=== PATIENT | male | born 1935 | race Caucasian/White ===

== ENCOUNTER 2017-03-18 11:17 | Emergency (ER) | payer MEDICARE, BC ==
--- NOTE | 2017-03-18 11:54 | ER Document Report ---
ED Medical Screen (RME) - General Chief Complaint: Fall Stated Complaint: FALL HEAD INJURY Time Seen by Provider: 03/18/17 11:48 Mode of Arrival: Ambulatory Information source: Patient, Relative TRAVEL OUTSIDE OF THE [place] IN LAST 30 DAYS: No - HPI Onset: This morning Onset/Duration: Sudden Associated Symptoms: None Exacerbated by: Denies Relieved by: Denies Notes: 03/18/17 11:52 Patient is an 81-year-old male who is very functional at home. Patient tripped and fell while ambulating sustaining several wounds to the left side of the face. Patient denies any loss of consciousness. Patient denies any neck or back pain. Patient denies any other injuries. Patient presents with several skin tears to the left side of the face along with a small laceration that requires repair. On the left forehead. - Related Data Allergies/Adverse Reactions: warfarin [Warfarin] Allergy (Severe, Verified 03/18/17 11:20) too high pt levels Past Medical History - General Information source: Patient, Relative, [facility] Records - Past Medical History Cardiac Medical History: Reports: Hx Coronary Artery Disease - ist degree ht block, arrhythmia, Hx Hypertension Pulmonary Medical History: Reports: Hx COPD Renal/ Medical History: Denies: Hx Peritoneal Dialysis GI Medical History: Reports: Hx Ulcer Musculoskeltal Medical History: Reports Hx Arthritis - gout Past Surgical History: Reports: Hx Orthopedic Surgery - right knee, neck fusion. Denies: Hx Pacemaker - Immunizations Hx Diphtheria, Pertussis, Tetanus Vaccination: Yes Review of Systems - Review of Systems Skin: Other - facial laceration and skin tear -: Yes All other systems reviewed and negative Physical Exam - Vital signs Vitals: Temp Pulse Resp BP Pulse Ox 97.5 F 50 L 18 118/87 H 96 03/18/17 11:20 03/18/17 11:20 03/18/17 11:20 03/18/17 11:20 03/18/17 11:20 Interpretation: Normal - General General appearance: Appears well, Alert - HEENT Head: Normocephalic, Abrasions, Other - Several small left-sided facial skin tears. There is a 1.5 cm curved laceration to the left forehead which will require suture repair. Eyes: Normal Pupils: PERRL Mouth/Lips: Normal Mucous membranes: Moist Pharynx: Normal Neck: Normal, Other - Cervical spine nontender to palpation - Respiratory Respiratory status: No respiratory distress Chest status: Nontender Breath sounds: Normal Chest palpation: Normal - Cardiovascular Rhythm: Regular Heart sounds: Normal auscultation Murmur: No - Extremities General upper extremity: Normal inspection, Nontender, Normal color, Normal ROM , Normal temperature General lower extremity: Normal inspection, Nontender, Normal color, Normal ROM , Normal temperature, Normal weight bearing. No: Claudia's sign - Neurological Neuro grossly intact: Yes Cognition: Normal Orientation: AAOx4 [place] Coma Scale Eye Opening: Spontaneous Wilber Coma Scale Verbal: Oriented Wilber Coma Scale Motor: Obeys Commands [place] Coma Scale Total: 15 Speech: Normal Motor strength normal: LUE, RUE, LLE, RLE Sensory: Normal Course - Re-evaluation Re-evalutation: 03/18/17 11:[address] is ordered. Laceration will be repaired by mid-level provider. - Vital Signs Vital signs: Temp Pulse Resp BP Pulse Ox 97.5 F 50 L 18 118/87 H 96 03/18/17 11:20 03/18/17 11:20 03/18/17 11:20 03/18/17 11:20 03/18/17 13:26 Doctor's Discharge - Discharge Clinical Impression: Facial laceration Condition: Good Disposition: HOME, SELF-CARE Instructions: Laceration Care ([facility]), Head Injury Precautions ([facility]) Additional Instructions: Suture removal in 7-10 days. Return for any problems.
[2017-03-18] MEDS ORDERED: LIDOCAINE 1%/EPINEPHRINE INJ 20 ML VIAL INJ ONE (11:57)
[2017-03-18] MEDS ORDERED: LIDOCAINE 1.5%/EPINEPHRINE INJ-PF 30 ML SDV INJ ONE (12:29)
[2017-03-18] MEDS ORDERED: LIDOCAINE 0.5%/EPINEPHRINE INJ 50 ML VIAL INJ ONE (12:47)
--- NOTE | 2017-03-18 12:54 | RADIOLOGY REPORT (SQ) ---
EXAM DESCRIPTION: CT HEAD WITHOUT COMPLETED DATE/TIME: 03/18/2017 12:40 pm REASON FOR STUDY: fall COMPARISON: 08/13/2011 CT brain TECHNIQUE: Axial images acquired through the brain without intravenous contrast. Images reviewed wi th bone, brain and subdural windows. Images stored on PACS. All CT scanners at this facility use dose modulation, iterative reconstruction, and/or weight based d osing when appropriate to reduce radiation dose to as low as reasonably achievable (ALARA). [facility]: Dose Right [facility]: CareDose [facility]: Dose Right [facility]: Teradose 4D [facility]: [employer] RADIATION DOSE: Up-to-date CT equipment and radiation dose reduction techniques were employed. CTDIv ol: 59.7 mGy. DLP: 1163 mGy-cm. mGy. LIMITATIONS: Motion artifact throughout the study FINDINGS: Motion artifact throughout study. On the images without motion artifact, there is CT evidence of acute intracranial hemorrhage, mass ef fect or midline shift. No gross evidence of large territory acute ischemic change. 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 Left frontal scalp laceration without underlying skull fracture. IMPRESSION: No gross acute intracranial changes. Left frontal scalp laceration without underlying skull fracture. TECHNICAL DOCUMENTATION: JOB ID: [id number] Quality ID # [id number]: Final reports with documentation of one or more dose reduction techniques (e.g., Au tomated exposure control, adjustment of the mA and/or kV according to patient size, use of iterative reconstruction technique) 2010 [employer]- All Rights Reserved
--- NOTE | 2017-03-18 13:26 | ER Document Report ---
HPI - HPI Pain Level: 2 Notes: Patient is an 81-year-old male presents to the ED status post fall with an injury laceration to his face that occurred this morning. Patient states that he was trying to walk to the bathroom and tripped and hit his face off the wood floor. accompanied him to the visit today. Patient has a history of ambulatory dysfunction, COPD, dementia along with several other chronic health conditions. states that aside from the fall he has no other acute changes in his health. His other chronic conditions continue to be status quo. states that he is still acting like his normal self without any deficits noted. Patient/ deny being on any blood thinner medication. Denies drug allergies aside from warfarin. Denies any headache, dizziness, tinnitus, fever , URI, sore throat, dysphagia, dysphasia, chest pain, palpitations, syncope, cough, wheeze, shortness of breath, dyspnea, abdominal pain, nausea/vomiting/ diarrhea, dysuria, or Osvaldo retention, loss of control of bowel or bladder, muscle weakness/paralysis, or other rash. - ROS Notes: REVIEW OF SYSTEMS: CONSTITUTIONAL : Denies fever, chills, or sweats. Denies recent illness. EENT: Denies eye, ear, throat, or mouth pain or symptoms. Denies nasal or sinus congestion or discharge. Denies throat, tongue, or mouth swelling or difficulty swallowing. CARDIOVASCULAR: Denies chest pain. Denies palpitations or racing or irregular heart beat. Denies ankle edema. RESPIRATORY: Denies cough, cold, or chest congestion. Denies shortness of breath, difficulty breathing, or wheezing. GASTROINTESTINAL: Denies abdominal pain or distention. Denies nausea, vomiting , or diarrhea. Denies blood in vomitus, stools, or per rectum. Denies black, tarry stools. Denies constipation. GENITOURINARY: Denies difficulty urinating, painful urination, burning, frequency, blood in urine, or discharge. MUSCULOSKELETAL: Denies back or neck pain or stiffness. Denies joint pain or swelling. SKIN: see hpi NEUROLOGICAL: see hpi. Denies confusion or altered mental status. Denies passing out or loss of consciousness. Denies dizziness or lightheadedness. Denies headache. Denies weakness or paralysis or loss of use of either side. Denies problems with gait or speech. Denies sensory loss, numbness, or tingling. Denies seizures. ALL OTHER SYSTEMS REVIEWED AND NEGATIVE. Dictation was performed using [employer] voice recognition software - CARDIOVASCULAR Cardiovascular: DENIES: Chest pain - DERM Skin Color: Normal Past Medical History - General Information source: Patient, Relative, [facility] Records - Social History Smoking Status: Never Smoker Family History: Reviewed & Not Pertinent Patient has suicidal ideation: No Patient has homicidal ideation: No - Past Medical History Cardiac Medical History: Reports: Hx Coronary Artery Disease - ist degree ht block, arrhythmia, Hx Hypertension Pulmonary Medical History: Reports: Hx COPD Renal/ Medical History: Denies: Hx Peritoneal Dialysis GI Medical History: Reports: Hx Ulcer Musculoskeltal Medical History: Reports Hx Arthritis - gout Past Surgical History: Reports: Hx Orthopedic Surgery - right knee, neck fusion. Denies: Hx Pacemaker - Immunizations Hx Diphtheria, Pertussis, Tetanus Vaccination: Yes Hx Pneumococcal Vaccination: 06/16/09 Vertical Provider Document - CONSTITUTIONAL Agree With Documented VS: Yes Notes: PHYSICAL EXAMINATION: GENERAL: Well-appearing, well-nourished and in no acute distress. HEAD: Atraumatic, normocephalic. + facial skin tears to forehead and inferior left eye, and a 3.0cm laceration above the left eyebrow. + mild tenderness to palp of the wound(s). No flor sign or skull tenderness. EYES: Pupils equal round and reactive to light, extraocular movements intact, sclera anicteric, conjunctiva are normal. No raccoon eyes aside from skin tear above. ENT: EAC clear b/l. TM's intact b/l without erythema, fluid, or perforation. Nares patent and without discharge. oropharynx clear without exudates. No tonsilar hypertrophy or erythema. Moist mucous membranes. No sinus tenderness. No hemotympanum or CSF discharge. NECK: Normal range of motion, supple without lymphadenopathy. No rigidity/ tenderness. LUNGS: Breath sounds clear to auscultation bilaterally and equal. No wheezes rales or rhonchi. HEART: Regular rate and rhythm without murmurs, rubs, gallops. ABDOMEN: Soft, nontender, nondistended abdomen. No guarding, no rebound. No masses appreciated. Normal bowel sounds present. No CVA tenderness bilaterally. Musculoskeletal: Ext b/l: FROM to passive/active. Strength 5+/5. Extremities: No cyanosis, clubbing, or edema b/l. Peripheral pulses 2+. Capillary refill less than 3 seconds. NEUROLOGICAL: Cranial nerves grossly intact. Normal speech, +ataxic gait. Normal sensory, motor exams PSYCH: Normal mood, normal affect. SKIN: skin tears and lac as noted above. - INFECTION CONTROL TRAVEL OUTSIDE OF THE [place] IN LAST 30 DAYS: No - RESPIRATORY O2 Sat by Pulse Oximetry: 96 Course - Re-evaluation Re-evalutation: 03/18/17 13:52 Patient is an afebrile, well-hydrated, 7-year-old male who presents the ED status post fall with a facial laceration and facial skin tears. Vitals are stable. PE otherwise unremarkable for any focal neurological deficits. Patient was initially eval by Dr. pina who evaluated and ordered a CT scan of the head. CT scan was unremarkable for any acute pathology. Facial laceration was repaired successfully utilizing 4 simple interrupted sutures of 5-0 nylon without any complications. Wounds were thoroughly irrigated. Wounds were debrided appropriately. Skin was cleansed using Shur-Clens and saline. Bacitracin was placed and wound dressings placed thereafter. Wound instructions reviewed with the and patient. They are to monitor for any acute neurological changes in the patient. Recheck with your PCM in 2-3 days. Recommend suture removal in about 5-7 days. Return to the ED with any worsening /concerning symptoms otherwise as reviewed in discharge. and patient are in agreement. - Vital Signs Vital signs: Temp Pulse Resp BP Pulse Ox 97.5 F 50 L 18 118/87 H 96 03/18/17 11:20 03/18/17 11:20 03/18/17 11:20 03/18/17 11:20 03/18/17 11:20 Procedures - Laceration/Wound Repair Left Face Time completed: 13:00 Wound length (cm): 3.0 Wound's Depth, Shape: Superficial, Irregular Laceration pre-procedure: Sterile PPE donned, Sterile drapes applied, Shur- Clens applied Anesthetic type: Other - 0.5% xylocaine with epi Volume Anesthetic (mLs): 6 Wound explored: Clean, No foreign body removed Irrigated w/ Saline (mLs): 60 Wound Debrided: Minimal - with 15 blade Wound Repaired With: Sutures Suture Size/Type: 5:0, Nylon Number of Sutures: 4 Layer Closure?: No Post-procedure wound care: Sterile dressing applied Post-procedure NV exam normal: Yes Complications: No Discharge - Discharge Clinical Impression: Facial laceration Qualifiers: Encounter type: initial encounter Qualified Code(s): S01.81XA - Laceration without foreign body of other part of head, initial encounter Condition: Stable Disposition: HOME, SELF-CARE Instructions: Head Injury Precautions ([facility]), Laceration Care ([facility]), Soap Cleansing ([facility]) Additional Instructions: Do not shower or bathe for 24 hours. After 24 hours she may shower but no submersion of the wound under water. Keep the original dressing on the wound for 24 hours unless the drainage stops through. Change the dressing daily thereafter and use a small amount of triple antibiotic ointment over the open wound for the first 2 days. Return to the ED and/or your PCM in 2-3 days for recheck and continue direction for wound packing. Monitor for any signs of worsening pain or redness, streaks, and/or fever. Return to the ED if noticing any of the above symptoms or as needed. Take medications as directed. Forms: Elevated Blood Pressure Referrals: [facility] [Provider Group] - Follow up as needed
[2017-03-18 13:43] VITALS: BP 140/105
== END 2017-03-18 14:00 | disposition home or self-care (01) ==
LOC: ER 11:17
PROC: 0HQ1XZZ Repair Face Skin, External Approach (ICD-10-PCS; principal; 2017-03-18)
DX: S01.81XA Laceration without foreign body of other part of head, initial encounter (principal); S01.112A Laceration without foreign body of left eyelid and periocular area, initial encounter; W10.9XXA Fall (on) (from) unspecified stairs and steps, initial encounter; Y93.89 Activity, other specified; Y92.009 Unspecified place in unspecified non-institutional (private) residence as the place of occurrence of the external cause; J44.9 Chronic obstructive pulmonary disease, unspecified; I25.10 Atherosclerotic heart disease of native coronary artery without angina pectoris; I10 Essential (primary) hypertension; Z88.8 Allergy status to other drugs, medicaments and biological substances
CPT/HCPCS: 12013; 99283; 70450; J3490 ×2

== ENCOUNTER 2017-05-13 15:33 | Inpatient (IN) | payer MEDICARE, BC ==
[2017-05-13] MEDS ORDERED: ASPIRIN 81 MG TABLET, CHEWABLE PO ONE (15:36)
[2017-05-13] MEDS ORDERED: NORMAL SALINE 1000 ML 1,000 ML IV ONE ×3 (15:48→17:17)
[2017-05-13] MEDS ORDERED: DILTIAZEM HCL INJ 25 MG/5 ML VIAL IV ONE (15:52)
[2017-05-13] MEDS ORDERED: DILTIAZEM HCL/D5W 125 MG/125 ML RTUINJ IV PRN (16:12)
[2017-05-13 16:15] LABS: VENOUS BLOOD BASE EXCESS -3.2 mmol/L; VENOUS BLOOD HCO3 23.6 mmol/L (20-32); VENOUS BLOOD PCO2 49.5 mmHg (35-63); VENOUS BLOOD PH 7.3 (7.30-7.42)
[2017-05-13 16:17] LABS: HEMATOCRIT 40.3 % (37.9-51.0); HEMOGLOBIN 12.9 g/dL (13.5-17.0); HGB HCT DIFFERENCE -1.6; MEAN CORPUSCULAR HEMOGLOBIN 31.2 pg (27.0-33.4); MEAN CORPUSCULAR VOLUME 97 fl (80-97); RED BLOOD COUNT 4.14 10^6/uL (4.35-5.55); RED CELL DISTRIBUTION WIDTH 16.3 % (11.5-14.0); WHITE BLOOD COUNT 11.8 10^3/uL (4.0-10.5)
[2017-05-13] MEDS ORDERED: CEFTRIAXONE 1 GM/D5W RTU 1 GM/50 ML RTUPB IV ONE (16:25)
--- NOTE | 2017-05-13 16:26 | RADIOLOGY REPORT (SQ) ---
EXAM DESCRIPTION: CHEST SINGLE VIEW COMPLETED DATE/TIME: 05/13/2017 4:15 pm REASON FOR STUDY: cp COMPARISON: 02/16/2014, 03/23/2012 EXAM PARAMETERS: NUMBER OF VIEWS: One view. TECHNIQUE: Single frontal radiographic view of the chest acquired. RADIATION DOSE: NA LIMITATIONS: None. FINDINGS: LUNGS AND PLEURA: Mild to moderate diffuse interstitial change with bibasilar prominence. Not present on the older chest x-rays. Possibly related to interstitial edema and heart failure how ever other developing interstitial pathology cannot be excluded such as pulmonary fibrosis. MEDIASTINUM AND HILAR STRUCTURES: No masses. Contour normal. HEART AND VASCULAR STRUCTURES: Heart normal in size. Normal vasculature. BONES: No acute findings. HARDWARE: None in the chest. OTHER: No other significant finding. IMPRESSION: Mild to moderate interstitial change predominantly involving the lung bases and has deve loped since the older chest x-rays. Differential includes interstitial edema or possibly developing chronic pulmonary interstitial disease such as pulmonary fibrosis. TECHNICAL DOCUMENTATION: JOB ID: [id number]
[2017-05-13 16:30] LABS: PROTHROMBIN TIME 15.2 SEC (11.4-15.4)
[2017-05-13 16:33] LABS: BASOPHILS % (MANUAL) 0 % (0-2); EOSINOPHILS % (MANUAL) 0 % (0-6); LYMPHOCYTES % (MANUAL) 6 % (13-45); TOTAL CELLS COUNTED 100
[2017-05-13 16:35] LABS: ANISOCYTOSIS 1+; POIKILOCYTOSIS SLIGHT; TOXIC GRANULATION SLIGHT
[2017-05-13 16:36] LABS: ALBUMIN 4.1 g/dL (3.5-5.0); ANION GAP 18 (5-19); BILIRUBIN,TOTAL 1.4 mg/dL (0.2-1.3); BLOOD UREA NITROGEN 39 mg/dL (7-20); CALCIUM 9.6 mg/dL (8.4-10.2); CARBON DIOXIDE 20 mmol/L (22-30); CHLORIDE 101 mmol/L (98-107); CREATINE KINASE 58 U/L (55-170); CREATININE RESULT 1.39 mg/dL (0.52-1.25); GLUCOSE 103 mg/dL (75-110); LIPASE 116.9 U/L (23-300); MAGNESIUM 2.1 mg/dL (1.6-2.3); SODIUM 138.5 mmol/L (137-145); TOTAL PROTEIN 7.1 g/dL (6.3-8.2)
[2017-05-13 16:44] LABS: CREATINE KINASE MB 4.69 ng/mL (<4.55)
[2017-05-13 16:46] LABS: ASPARTATE AMINO TRANSFERASE 1018 U/L (17-59)
[2017-05-13 16:49] LABS: TROPONIN I 2.65 ng/mL
[2017-05-13 17:03] LABS: THYROID STIMULATING HORMONE 2.08 uIU/mL (0.47-4.68)
[2017-05-13 17:11] LABS: ALANINE AMINOTRANSFERASE 555 U/L (21-72); ALKALINE PHOSPHATASE 193 U/L (38-126); POTASSIUM 5.6 mmol/L (3.6-5.0)
[2017-05-13] MEDS ORDERED: ESMOLOL HCL/SOD CL 2,500 MG/250 ML RTUINJ IV PRN ×2 (17:16→18:55)
[2017-05-13] MEDS ORDERED: DIGOXIN INJ 0.5 MG/2 ML AMPULE IV ONE ×2 (17:23→18:19)
--- NOTE | 2017-05-13 17:36 | ER Document Report ---
ED General - General Chief Complaint: Arrhythmia Stated Complaint: HEART ISSUES Time Seen by Provider: 05/13/17 15:40 TRAVEL OUTSIDE OF THE [place] IN LAST 30 DAYS: No - HPI Patient complains to provider of: Feeling unwell Notes: Patient is coming in for evaluation of not feeling well. Initially contacted by EMS patient was complaining of chest pain patient was found to be in a wide- complex tachycardia initially with a blood pressure in the 80s. Patient upon arrival here in ER shows multiple rhythm changes from normal sinus rhythm with right bundle branch block to A. fib with RVR to nonsustained V. tach. Patient otherwise denies any chest pain at this time. at bedside states that she has a productive cough no fevers no night sweats no chills. No recent travel no medication changes. Patient does have a history of COPD has had increased oxygen use over the last 3 days. - Related Data Allergies/Adverse Reactions: warfarin [Warfarin] Allergy (Severe, Verified 03/18/17 11:20) too high pt levels Home Medications: Current Home Medications Albuterol Sulfate [Albuterol Sulfate 2.5mg/3 mL] 2.5 mg NEB Q6HP PRN 05/13/17 [ History] Albuterol Sulfate [Albuterol Sulfate 2.5mg/3 mL] 2.5 ml NEB QAM 05/13/17 [ History] Albuterol Sulfate [Proair HFA Inhalation Aerosol 8.5 gm MDI] 2 puff IH Q6 [History] Amlodipine Besylate [Norvasc 5 mg Tablet] 5 mg PO DAILY 05/13/17 [History] Aspirin [Ecotrin 81 mg EC Tablet] 81 mg PO DAILY 05/13/17 [History] Cyanocobalamin (Vitamin B-12) [Vitamin B-12 Inj 1000 Mcg/1 ml Vial] 1,000 mcg IM [id number] 05/13/17 [History] Donepezil HCl [Aricept 5 mg Tablet] 5 mg PO DAILY 05/13/17 [History] Fluoxetine HCl [Prozac 20 mg Capsule] 20 mg PO DAILY 05/13/17 [History] Memantine HCl [Namenda 10 mg Tablet] 10 mg PO BID 05/13/17 [History] Omeprazole 20 mg PO DAILY 05/13/17 [History] Prednisone [Deltasone 5 mg Tablet] 5 mg PO DAILY 05/13/17 [History] Pregabalin [Lyrica] 225 mg PO QHS 05/13/17 [History] Simvastatin [Zocor 10 mg Tablet] 10 mg PO QHS 05/13/17 [History] Tramadol HCl [Ultram 50 mg Tablet] 50 mg PO Q8HP PRN 05/13/17 [History] Trazodone HCl [Desyrel 50 mg Tablet] 50 mg PO QHS 05/13/17 [History] Umeclidinium Brm/Vilanterol Tr [Anoro Ellipta 62.5-25 Mcg INH] 1 puff IH DAILY 05/13/17 [History] Past Medical History - Social History Smoking Status: Unknown if Ever Smoked Family History: Reviewed & Not Pertinent - Past Medical History Cardiac Medical History: Reports: Hx Coronary Artery Disease - ist degree ht block, arrhythmia, Hx Hypercholesterolemia, Hx Hypertension Pulmonary Medical History: Reports: Hx COPD Endocrine Medical History: Reports: Hx Diabetes Mellitus Type 2 Renal/ Medical History: Denies: Hx Peritoneal Dialysis GI Medical History: Reports: Hx Ulcer Musculoskeltal Medical History: Reports Hx Arthritis - gout Past Surgical History: Reports: Hx Orthopedic Surgery - right knee, neck fusion. Denies: Hx Pacemaker - Immunizations Hx Diphtheria, Pertussis, Tetanus Vaccination: Yes Hx Pneumococcal Vaccination: 06/16/09 Review of Systems - Review of Systems -: Yes ROS unobtainable due to patient's medical condition - Dementia Physical Exam - Vital signs Vitals: Pulse Ox 94 05/13/17 15:35 Interpretation: Hypotensive, Tachycardic - General General appearance: Appears well, Alert - HEENT Head: Normocephalic, Atraumatic Eyes: Normal Pupils: PERRL - Respiratory Respiratory status: No respiratory distress Chest status: Nontender Breath sounds: Rhonchi, Wheezing Chest palpation: Normal - Cardiovascular Rhythm: Irregularly irregular Heart sounds: Normal auscultation Murmur: No - Abdominal Inspection: Normal Distension: No distension Bowel sounds: Normal Tenderness: Nontender Organomegaly: No organomegaly - Back Back: Normal, Nontender - Extremities General upper extremity: Normal inspection, Nontender, Normal ROM, Normal temperature General lower extremity: Normal inspection, Nontender, Normal color - Neurological Neuro grossly intact: Yes Cognition: Confused Orientation: AAOx4 [place] Coma Scale Eye Opening: Spontaneous [place] Coma Scale Verbal: Confused [place] Coma Scale Motor: Obeys Commands [place] Coma Scale Total: 14 Speech: Normal Motor strength normal: LUE, RUE, LLE, RLE Sensory: Normal - Psychological Associated symptoms: Normal affect, Normal mood - Skin Skin Temperature: Warm Skin Moisture: Dry Course - Re-evaluation Re-evalutation: 05/13/17 22:37 Discussion with the at bedside. states the patient requests DNR status is also the power of corporate associate attorney. States that she agrees with medical treatment of the patient's pneumonia and cardiac arrhythmias however does not want any surgeries or life support or ventilation. Patient was initially started on Cardizem for A. fib RVR however continue to have intermittent runs of nonsustained V. tach. Switched patient from Cardizem to esmolol was seen to control the episodes of V. tach better. However patient did come sinew to have his eye episodes of hypotension. No urinary output for the last 24 hours therefore more likely patient is dehydrated IV resuscitation of IV fluids was given patient was also started on antibiotics for chest x-ray changes concerning for pneumonia. Patient will be discharged home - Vital Signs Vital signs: Temp Pulse Resp BP Pulse Ox 97.6 F 18 95/59 L 95 05/13/17 16:13 05/13/17 18:22 05/13/17 18:22 05/13/17 18:15 - Laboratory Result Diagrams: 05/13/17 16:00 05/13/17 16:00 Laboratory results interpreted by me: 05/13/17 05/13/17 05/13/17 16:00 16:00 16:00 WBC 11.8 H RBC 4.14 L Hgb 12.9 L RDW 16.3 H Seg Neuts % (Manual) 84 H Lymphocytes % (Manual) 6 L Abs Neuts (Manual) 9.9 H Potassium 5.6 H Carbon Dioxide 20 L BUN 39 H Creatinine 1.39 H Est GFR ( Amer) 59 L Est GFR (Non-Af Amer) 49 L Lactic Acid Total Bilirubin 1.4 H Direct Bilirubin 1.0 H AST 1018 H ALT 555 H Alkaline Phosphatase 193 H CK-MB (CK-2) 4.69 H NT-Pro-B Natriuret Pep 05/13/17 05/13/17 16:00 16:00 WBC RBC Hgb RDW Seg Neuts % (Manual) Lymphocytes % (Manual) Abs Neuts (Manual) Potassium Carbon Dioxide BUN Creatinine Est GFR ( Amer) Est GFR (Non-Af Amer) Lactic Acid 3.7 H Total Bilirubin Direct Bilirubin AST ALT Alkaline Phosphatase CK-MB (CK-2) NT-Pro-B Natriuret Pep 80894 H Critical Care Note - Critical Care Note Total time excluding time spent on procedures (mins): 80 Comments: Multiple evaluation for patient with multiple arrhythmias elevated troponin with non-STEMI pneumonia Discharge - Discharge Clinical Impression: Atrial fibrillation with RVR, Non-ST elevation (NSTEMI) myocardial infarction, Non-sustained ventricular tachycardia, Elevated LFTs Pneumonia Qualifiers: Pneumonia type: due to unspecified organism Laterality: unspecified laterality Lung location: unspecified part of lung Qualified Code(s): J18.9 - Pneumonia, unspecified organism Condition: Good Disposition: ADMITTED INPATIENT Admitting Provider: Hospitalist - [facility] Admitted: ICU
[2017-05-13] MEDS ORDERED: ONDANSETRON 4 MG TAB.RAPDIS PO PRN (18:07)
[2017-05-13] MEDS ORDERED: ACETAMINOPHEN 325 MG TABLET PO PRN (18:07)
[2017-05-13] MEDS ORDERED: HEPARIN SOD (PORCINE) 1,000 UNIT/ML 10 ML VIAL IV ONE ×2 (18:33→23:30)
--- NOTE | 2017-05-13 19:04 | PDOC H&P ---
History of Present Illness Admission Date/PCP: 05/13/17 18:18 Patient complains of: Weakness History of Present Illness: HOLLI JUNIOR is a 81 year old male presents to hospital due to weakness and not eating much. Great Granddaughter states that pt is has been tired for several day. Pt's was not present and patient is a poor historian. Great Granddaughter states that pt has dementia and mental illness. Pt admits to coughing and shortness of breath. ER states that patient's states that she wants him kept comfortable and to give only medications. ER states that reported that she does not want patient having surgery or procedures. He also states that does not want patient intubated. Spoke with patient's great granddaughter who states that her grandmother wants him comfortable and that he is DNR/DNI with no procedures. Past Medical History Cardiac Medical History: Reports: Coronary Artery Disease - ist degree ht block , arrhythmia, Hyperlipidema, Hypertension Pulmonary Medical History: Reports: Chronic Obstructive Pulmonary Disease (COPD) Endocrine Medical History: Reports: Diabetes Mellitus Type 2 Musculoskeltal Medical History: Reports: Arthritis - gout Hematology: Reports: Anemia Past Surgical History Past Surgical History: Reports: Orthopedic Surgery - right knee, neck fusion Denies: Pacemaker Social History Lives with: Family Smoking Status: Former Smoker Frequency of Alcohol Use: None Hx Recreational Drug Use: No Hx Prescription Drug Abuse: No Family History Family History: Reviewed & Not Pertinent Parental Family History Reviewed: Yes Children Family History Reviewed: Yes Sibling(s) Family History Reviewed.: Yes Medication/Allergy Allergies/Adverse Reactions: warfarin [Warfarin] Allergy (Severe, Verified 03/18/17 11:20) too high pt levels Review of Systems ROS unobtainable: Due to mental status, Other - Due to patient's dementia Respiratory: PRESENT: cough, dyspnea, sputum Physical Exam Vital Signs: Temp Pulse Resp BP Pulse Ox 97.6 F 18 95/59 L 95 05/13/17 16:13 05/13/17 18:22 05/13/17 18:22 05/13/17 18:15 Intake & Output 05/12/17 05/13/17 05/14/17 06:59 06:59 06:59 Weight 68.855 kg General appearance: PRESENT: mild distress, other - +temporal wasting Head exam: PRESENT: atraumatic, normocephalic Eye exam: PRESENT: conjunctiva pink, EOMI. ABSENT: scleral icterus Ear exam: PRESENT: normal external ear exam Mouth exam: PRESENT: moist, tongue midline Neck exam: ABSENT: carotid bruit, JVD, lymphadenopathy, thyromegaly Respiratory exam: PRESENT: other - coarse breath sounds, diminished at bases Cardiovascular exam: PRESENT: tachycardia Pulses: PRESENT: normal dorsalis pedis pul GI/Abdominal exam: PRESENT: normal bowel sounds, soft. ABSENT: distended, guarding, mass, organolmegaly, rebound, tenderness Rectal exam: PRESENT: deferred Extremities exam: PRESENT: full ROM. ABSENT: calf tenderness, clubbing, pedal edema Neurological exam: PRESENT: alert, awake, oriented to person, CN II-XII grossly intact. ABSENT: motor sensory deficit Psychiatric exam: PRESENT: appropriate affect, normal mood. ABSENT: homicidal ideation, suicidal ideation Skin exam: PRESENT: warm Results Impressions: Chest X-Ray 05/13/17 15:36 IMPRESSION: Mild to moderate interstitial change predominantly involving the lung bases and has developed since the older chest x-rays. Differential includes interstitial edema or possibly developing chronic pulmonary interstitial disease such as pulmonary fibrosis. Assessment & Plan - Diagnosis (1) Atrial fibrillation with RVR Is this a current diagnosis for this admission?: Yes Plan: We will place patient on esmolol drip. Patient was placed on Cardizem in the emergency department with no effect on heart rate. Patient was also given digoxin which did not seem to affect heart rate. Cardiology has been consulted. Will place patient on heparin drip. Will order 2D echo. (2) Acute kidney injury superimposed on chronic kidney disease Is this a current diagnosis for this admission?: Yes Plan: Secondary to poor perfusion: Will check labs in the morning. ER has given patient IV fluids. (3) Non-sustained ventricular tachycardia Is this a current diagnosis for this admission?: Yes Plan: Pt has a prior history of nonsustained V. tach. Will check magnesium and thyroid function. (4) Non-ST elevation (NSTEMI) myocardial infarction Is this a current diagnosis for this admission?: Yes Plan: We will order serial troponins and 2D echo. We will try to get patient's heart rate under better control. NSTEMI secondary to demand most likely. (5) Protein-calorie malnutrition, moderate Is this a current diagnosis for this admission?: Yes Plan: Patient currently on clears until heart rate is better controlled. Once patient is more hemodynamically stable will place patient on supplemental drinks with regular diet (6) Lactic acid acidosis Is this a current diagnosis for this admission?: Yes Plan: Secondary to poor perfusion due to cardiac condition: Will do serial lactic acids. (7) Hyperkalemia Is this a current diagnosis for this admission?: Yes Plan: We will check labs in a.m. no intervention currently pursued at this time. (8) Elevated brain natriuretic peptide (BNP) level Is this a current diagnosis for this admission?: Yes Plan: Patient appears to be euvolemic at this time however will monitor closely. (9) Elevated LFTs Is this a current diagnosis for this admission?: Yes Plan: Secondary to hepatic congestion: We will continue to follow LFTs feel that this will improve once patient's heart rate is under better control (10) Dementia Qualifiers: Dementia type: unspecified type Is this a current diagnosis for this admission?: Yes Plan: Family has requested that patient be DNR/DNI with no cardiac shocks. Family has only agreed to medication treatment. Will consult Pallative care. (11) Pneumonia Qualifiers: Pneumonia type: due to unspecified organism Is this a current diagnosis for this admission?: Yes Plan: Patient's chest x-ray demonstrates findings is consistent with pulmonary fibrosis. If patient does have infiltrate most likely secondary to fluid due to patient's rapid heart rate. In the meantime we will empirically treat with antibiotics. (12) DVT prophylaxis Is this a current diagnosis for this admission?: Yes Plan: Heparin - Time Time Spent: 30 to 50 Minutes
[2017-05-13] MEDS ORDERED: SODIUM POLYSTYRENE SULFONATE 15 GM/60 ML PO ONE ×2 (19:30→23:45)
--- NOTE | 2017-05-13 19:50 | EKG REPORT ---
SEVERITY:- ABNORMAL ECG - EXTREME TACHYCARDIA WITH WIDE COMPLEX, NO FURTHER RHYTHM ANALYSIS ATTEMPTED : Confirmed by: Frantz Rainey MD 13-May-2017 19:50:05
[2017-05-13] MEDS ORDERED: METOPROLOL TARTRATE PF/INJ 5 MG/5 ML SDV IV SCH (20:00)
[2017-05-13] MEDS ORDERED: AMIODARONE HCL INJ 150 MG/3 ML VIAL IV ONE ×2 (20:44→20:55)
[2017-05-13] MEDS ORDERED: AMIODARONE HCL 150 MG in DEXTROSE 5%-WATER 100 ML IV ONE (20:47)
[2017-05-13] MEDS ORDERED: DEXTROSE 5%-WATER 500 ML with AMIODARONE HCL 900 MG IV PRN ×2 (20:49)
--- NOTE | 2017-05-13 22:06 | PDOC CONSULTATION ---
Consultation Consult Date: 05/13/17 Attending physician:: TINA LOPEZ Consult reason:: NSVT History of Present Illness Admission Date/PCP: 05/13/17 18:07 Patient complains of: Shortness of breath, general fatigue and tiredness. History of Present Illness: HOLLI JUNIOR is a 81 year old male presents to hospital due to weakness and not eating much. Great Granddaughter states that pt is has been tired for several day. Patient is a poor historian. Great Granddaughter states that pt has dementia and mental illness. Pt admits to coughing and shortness of breath. ER states that patient's states that she wants him kept comfortable and to give only medications. ER states that reported that she does not want patient having surgery or procedures. He also states that does not want patient intubated. Spoke with patient's great granddaughter who states that her grandmother wants him comfortable and that he is DNR/DNI with no procedures. Subsequently patient's was interviewed who was at bedside when I saw patient in the emergency room. Patient wants patient to be treated without any invasive procedure or intervention. Basically she wanted patient to be kept comfortable. Patient has been noted to have some fungal infection his skin infection which gives him a reddish hue all over. Patient on questioning denied any chest pain. It seems patient has chronic problems with his heart rhythm for which he was evaluated in [place] and no solution was reached. While on the monitor patient was noted to have frequent short runs of wide-complex tachycardia felt to be ventricular tachycardia. Patient's did not want cardioversion or shocking or CPR. This history was reviewed, supplemented and confirmed. Past Medical History Cardiac Medical History: Reports: Coronary Artery Disease - ist degree ht block , arrhythmia, Hyperlipidema, Hypertension Pulmonary Medical History: Reports: Chronic Obstructive Pulmonary Disease (COPD) Endocrine Medical History: Reports: Diabetes Mellitus Type 2 Musculoskeltal Medical History: Reports: Arthritis - gout Hematology: Reports: Anemia Past Surgical History Past Surgical History: Reports: Orthopedic Surgery - right knee, neck fusion Denies: Pacemaker Social History Information Source: Relative Lives with: Family Smoking Status: Former Smoker Frequency of Alcohol Use: None Hx Recreational Drug Use: No Hx Prescription Drug Abuse: No - Advance Directive Resuscitation Status: Do Not Resuscitate Surrogate healthcare decision maker:: is the surrogate decision-maker Family History Family History: Hypertension Parental Family History Reviewed: Yes Children Family History Reviewed: Yes Sibling(s) Family History Reviewed.: Yes Medication/Allergy Home Medications: Albuterol Sulfate [Albuterol Sulfate 2.5mg/3 mL] 2.5 mg NEB Q6HP PRN 05/13/17 Albuterol Sulfate [Albuterol Sulfate 2.5mg/3 mL] 2.5 ml NEB QAM 05/13/17 Albuterol Sulfate [Proair HFA Inhalation Aerosol 8.5 gm MDI] 2 puff IH Q6 Amlodipine Besylate [Norvasc 5 mg Tablet] 5 mg PO DAILY 05/13/17 Aspirin [Ecotrin 81 mg EC Tablet] 81 mg PO DAILY 05/13/17 Cyanocobalamin (Vitamin B-12) [Vitamin B-12 Inj 1000 Mcg/1 ml Vial] 1,000 mcg IM [id number] 05/13/17 Donepezil HCl [Aricept 5 mg Tablet] 5 mg PO DAILY 05/13/17 Fluoxetine HCl [Prozac 20 mg Capsule] 20 mg PO DAILY 05/13/17 Memantine HCl [Namenda 10 mg Tablet] 10 mg PO BID 05/13/17 Omeprazole 20 mg PO DAILY 05/13/17 Prednisone [Deltasone 5 mg Tablet] 5 mg PO DAILY 05/13/17 Pregabalin [Lyrica] 225 mg PO QHS 05/13/17 Simvastatin [Zocor 10 mg Tablet] 10 mg PO QHS 05/13/17 Tramadol HCl [Ultram 50 mg Tablet] 50 mg PO Q8HP PRN 05/13/17 Trazodone HCl [Desyrel 50 mg Tablet] 50 mg PO QHS 05/13/17 Umeclidinium Brm/Vilanterol Tr [Anoro Ellipta 62.5-25 Mcg INH] 1 puff IH DAILY 05/13/17 Allergies/Adverse Reactions: warfarin [Warfarin] Allergy (Severe, Verified 03/18/17 11:20) too high pt levels Review of Systems Constitutional: PRESENT: fatigue, night sweats, weakness Eyes: ABSENT: visual disturbances Ears: ABSENT: hearing changes Nose, Mouth, and Throat: ABSENT: as per HPI, headache(s), mouth pain, sore throat, vertigo, other Cardiovascular: PRESENT: dyspnea on exertion, edema, palpitations Respiratory: PRESENT: cough, dyspnea, sputum. ABSENT: hemoptysis Gastrointestinal: PRESENT: nausea. ABSENT: abdominal pain, constipation, diarrhea, hematemesis, hematochezia, vomiting Genitourinary: PRESENT: difficulty urinating, nocturia. ABSENT: dysuria, hematuria Musculoskeletal: PRESENT: muscle weakness. ABSENT: deformity, joint swelling Integumentary: PRESENT: erythema, pruritus, rash Neurological: PRESENT: confusion, memory loss, weakness. ABSENT: syncope Psychiatric: PRESENT: other - Dementia Endocrine: ABSENT: cold intolerance, heat intolerance, polydipsia, polyuria Hematologic/Lymphatic: PRESENT: easy bruising. ABSENT: lymphadenopathy Physical Exam Vital Signs: Temp Pulse Resp BP Pulse Ox 97.6 F 18 95/59 L 95 05/13/17 16:13 05/13/17 18:22 05/13/17 18:22 05/13/17 18:15 Intake & Output 05/12/17 05/13/17 05/14/17 06:59 06:59 06:59 Weight 68.855 kg Exam: GENERAL: well-nourished and in no acute distress. Patient is alert and oriented to place time or person. Patient does respond to questions and seems appropriate answers. HEAD: Atraumatic, normocephalic. EYES: Pupils equal round and reactive to light, extraocular movements intact, sclera anicteric, conjunctiva are normal. ENT: TMs normal, nares patent, oropharynx clear without exudates. Moist mucous membranes. No oral ulcerations or bleeding gums noted NECK: supple without lymphadenopathy or JVD. Trachea is central. No cervical or axillary lymphadenopathy noted. Carotids are 2+ LUNGS: Breath sounds bibasilar fine crackles at bases. No significant dullness noted. CHEST: Palpation of chest wall shows no significant chest wall tenderness. HEART: [employer], No PSH, 2/6 K[place] aortic area, 1/6 [place] systolic murmur mitral area, rubs or gallops. ABDOMEN: Soft, no significant tenderness appreciated, normoactive bowel sounds. No guarding, no rebound. No rigidity noted . No masses appreciated. EXTREMITIES: Pedal pulses are 1-2+, no calf tenderness noted, Trace + pedal edema noted. No clubbing or cyanosis. NEUROLOGICAL: Patient is alert generalized weakness noted but patient able to move all 4 extremities on command. No facial asymmetry noted. PSYCH: Patient mood seems normal. Judgment not checked because of history of dementia. SKIN: No significant ecchymosis, erythematous rash noted all over, mild pruritus noted. MUSCULOSKELETAL EXAM: No significant joint swelling noted. Skin exam: PRESENT: rash - generalised erythematous rash Results Laboratory Results: 05/13/17 20:05 Lactic Acid 4.4 H 05/13/17 20:05 Troponin I 2.620 EKG Comments: Wide-complex tachycardia most likely ventricular tachycardia. Impressions: Chest X-Ray 05/13/17 15:36 IMPRESSION: Mild to moderate interstitial change predominantly involving the lung bases and has developed since the older chest x-rays. Differential includes interstitial edema or possibly developing chronic pulmonary interstitial disease such as pulmonary fibrosis. Assessment & Plan - Diagnosis (2) Atrial fibrillation with RVR Is this a current diagnosis for this admission?: Yes (3) Pneumonia Qualifiers: Pneumonia type: due to unspecified organism Laterality: unspecified laterality Lung location: unspecified part of lung Qualified Code(s): J18.9 - Pneumonia, unspecified organism Is this a current diagnosis for this admission?: Yes (4) Acute kidney injury superimposed on chronic kidney disease Is this a current diagnosis for this admission?: Yes (5) Elevated brain natriuretic peptide (BNP) level Is this a current diagnosis for this admission?: Yes (6) Non-ST elevation (NSTEMI) myocardial infarction Is this a current diagnosis for this admission?: Yes (7) Congestive heart failure Qualifiers: Congestive heart failure type: unspecified congestive heart failure type Congestive heart failure chronicity: acute on chronic Qualified Code(s): I50.9 - Heart failure, unspecified Is this a current diagnosis for this admission?: Yes - Notes Notes: NSVT, VTACH amiodarone drip started. Medical management initiated by the hospitalist and ER physician was reviewed. Ventricular tachycardia: Patient noted to have mostly nonsustained runs and few runs lasting more than 15 seconds. Patient was started on amiodarone drip. Initially patient was on esmolol drip but that seems to be not working. Amiodarone drip after bolus protocol was instituted. Side effects discussed. Atrial fibrillation: Heart rate noted to be intermittently increased. Continue amiodarone drip and esmolol drip for heart rate control. Pneumonia: Continue antibiotic therapy. Acute on chronic kidney disease: Continue to monitor renal functions. Avoid contrast agent if possible. Non-ST segment elevation myocardial infarction: Patient has significantly elevated troponin I. Agree with heparin, heart rate control for atrial fibrillation and treatment of nonsustained ventricular tachycardia as noted above. Will recommend statins. May consider adding CHEL inhibitor or ARB, when patient stabilized. Congestive heart failure: Patient has significantly elevated BNP level and also chest x-ray shows pulmonary venous congestion. Cautious use of diuretics at this point is being recommended since patient is also intermittently hypotensive. CODE STATUS discussed. There want noninvasive management. Patient therefore being kept here rather than being transferred. Overall prognosis is guarded. A 2D echo was ordered. Do not feel patient will be a candidate for ischemia evaluation. - Time Time Spent: 50 to 70 Minutes - CODE STATUS : was discussed, patient remains DO NOT RESUSCITATE. Surrogate decision-maker unchanged. Multiple medical problems were addressed. More than 50% of the time spent coordinating care, discussing management plans with involved caregivers. Management plans discussed with involved personnels. Medical decision making was of high complexity, patient's has multiple comorbidities. Medications reviewed and adjusted accordingly: Yes
[2017-05-13 22:53] LABS: HEMATOCRIT 36.6 % (37.9-51.0); HEMOGLOBIN 11.8 g/dL (13.5-17.0); HGB HCT DIFFERENCE -1.2; MEAN CORPUSCULAR HEMOGLOBIN 31.3 pg (27.0-33.4); MEAN CORPUSCULAR HGB CONC 32.2 g/dL (32.0-36.0); MEAN CORPUSCULAR VOLUME 97 fl (80-97); RED BLOOD COUNT 3.76 10^6/uL (4.35-5.55); RED CELL DISTRIBUTION WIDTH 15.9 % (11.5-14.0); WHITE BLOOD COUNT 15.6 10^3/uL (4.0-10.5)
[2017-05-13 23:01] LABS: PARTIAL THROMBOPLASTIN TIME 35.4 SEC (23.5-35.8); PROTHROMBIN TIME 18.3 SEC (11.4-15.4)
[2017-05-13 23:07] LABS: BAND NEUTROPHILS % (MANUAL) 1 % (3-5); BASOPHILS % (MANUAL) 0 % (0-2); EOSINOPHILS % (MANUAL) 0 % (0-6); LYMPHOCYTES % (MANUAL) 6 % (13-45); TOTAL CELLS COUNTED 100
[2017-05-13 23:08] LABS: ANION GAP 15 (5-19); BLOOD UREA NITROGEN 38 mg/dL (7-20); CALCIUM 8.3 mg/dL (8.4-10.2); CARBON DIOXIDE 18 mmol/L (22-30); CHLORIDE 103 mmol/L (98-107); CREATININE RESULT 1.53 mg/dL (0.52-1.25); GLUCOSE 141 mg/dL (75-110); POTASSIUM 5.9 mmol/L (3.6-5.0); SODIUM 136.2 mmol/L (137-145)
[2017-05-13 23:11] LABS: ANISOCYTOSIS SLIGHT; OVALOCYTES 1+; POIKILOCYTOSIS SLIGHT; POLYCHROMASIA 1+
[2017-05-13] MEDS: PANTOPRAZOLE SODIUM 40 MG VIAL IV SCH (23:38)
[2017-05-13] MEDS: HEPARIN SODIUM,PORCINE/D5W 25,000 UNIT/250 ML RTUINJ IV PRN (23:51)
[2017-05-14] MEDS ORDERED: NORMAL SALINE 1000 ML 500 ML IV ONE ×2 (00:37→01:20)
[2017-05-14] MEDS ORDERED: DEXTROSE 50%-WATER 25 GM/50 ML DISP.SYRIN IV ONE (01:18)
[2017-05-14] MEDS ORDERED: INSULIN REG, HUMAN 100 UNIT/ML 3 ML VIAL (PYX) IV ONE (01:18)
[2017-05-14] MEDS ORDERED: PROMETHAZINE HCL 25 MG SUPP.RECT PR ONE ×2 (01:19→02:37)
[2017-05-14 03:17] LABS: HEMATOCRIT 32.6 % (37.9-51.0); HEMOGLOBIN 10.2 g/dL (13.5-17.0); MEAN CORPUSCULAR HEMOGLOBIN 30.6 pg (27.0-33.4); MEAN CORPUSCULAR HGB CONC 31.5 g/dL (32.0-36.0); MEAN CORPUSCULAR VOLUME 97 fl (80-97); RED BLOOD COUNT 3.35 10^6/uL (4.35-5.55); RED CELL DISTRIBUTION WIDTH 15.8 % (11.5-14.0); WHITE BLOOD COUNT 14.4 10^3/uL (4.0-10.5)
[2017-05-14 03:33] LABS: ALANINE AMINOTRANSFERASE 985 U/L (21-72); ALBUMIN 2.6 g/dL (3.5-5.0); ALKALINE PHOSPHATASE 136 U/L (38-126); ANION GAP 13 (5-19); BILIRUBIN,DIRECT 1.4 mg/dL (0.0-0.4); BILIRUBIN,TOTAL 1.9 mg/dL (0.2-1.3); BLOOD UREA NITROGEN 40 mg/dL (7-20); CALCIUM 7.9 mg/dL (8.4-10.2); CARBON DIOXIDE 17 mmol/L (22-30); CHLORIDE 109 mmol/L (98-107); CREATININE RESULT 1.68 mg/dL (0.52-1.25); GLUCOSE 149 mg/dL (75-110); POTASSIUM 5.1 mmol/L (3.6-5.0); SODIUM 138.7 mmol/L (137-145)
[2017-05-14 03:38] LABS: BAND NEUTROPHILS % (MANUAL) 1 % (3-5); BASOPHILS % (MANUAL) 0 % (0-2); EOSINOPHILS % (MANUAL) 0 % (0-6); LYMPHOCYTES % (MANUAL) 4 % (13-45); TOTAL CELLS COUNTED 100; TOXIC VACUOLATION PRESENT
[2017-05-14 03:39] LABS: ANISOCYTOSIS SLIGHT; POIKILOCYTOSIS SLIGHT; TEAR DROP CELLS SLIGHT
--- NOTE | 2017-05-14 03:56 | Progress Note ---
Provider Note Provider Note: May 13, 2017: I was contacted by patient's intensive care unit nurse, stating that , who is patient's healthcare decision maker, wished patient to be full DNR status, instead of chemical code only. I went to the patient's bedside. While pleasant, awake, alert, and cooperative , patient was globally disoriented. soon arrived at bedside. Implications of DO NOT RESUSCITATE/DO NOT INTUBATE status discussed with . Discussed in layperson's terms. Implications understood. She is the health care decision maker. Her conversation is lucid and appropriate. She desires DO NOT RESUSCITATE/DO NOT INTUBATE status; she also stated that patient had expressed the same desire in the past. Will honor their wishes. Systemic anticoagulation had been ordered by admitting daytime hospitalist, for combination of atrial fibrillation with rapid ventricular response, and non-ST elevation MA. understands the risks of systemic anti-coagulation to include but not be limited to internal bleeding, which can take the form of GI tract and/or intracranial hemorrhage, the latter of which can result in or stroke with permanent paralysis. Patient has no absolute contraindication to systemic anticoagulation. Above discussed in lay person's terms. agrees that patient should undergo systemic anticoagulation. Shortly after amiodarone drip had been started, pulse rate was noted to be in the upper 40s to low 50s, with systolic pressure in the low 90s. Discussed by phone with Dr. Stein, on-call chore worker who had seen the patient in consultation earlier that day. He agreed with plans to stop the amiodarone drip. Nursing staff aware. Order entered into chart.
[2017-05-14 04:03] LABS: THYROID STIMULATING HORMONE 3.67 uIU/mL (0.47-4.68)
[2017-05-14 04:33] LABS: ASPARTATE AMINO TRANSFERASE 3070 U/L (17-59)
[2017-05-14] MEDS: METOPROLOL TARTRATE PF/INJ 5 MG/5 ML SDV IV SCH ×2 (04:42→11:30)
[2017-05-14] MEDS ORDERED: LANSOPRAZOLE 15 MG TAB.RAP.DR PO SCH (06:00)
[2017-05-14] MEDS ORDERED: HEPARIN SOD (PORCINE) 1,000 UNIT/ML 10 ML VIAL ONE (08:02)
[2017-05-14] MEDS ORDERED: HEPARIN SODIUM,PORCINE/D5W 25,000 UNIT/250 ML RTUINJ IV PRN (08:16)
[2017-05-14] MEDS ORDERED: HEPARIN SOD (PORCINE) 1,000 UNIT/ML 10 ML VIAL IV PRN (08:16)
[2017-05-14] MEDS ORDERED: ONDANSETRON 4 MG TAB.RAPDIS PO PRN (09:00)
[2017-05-14] MEDS ORDERED: ACETAMINOPHEN 325 MG TABLET PO PRN (09:00)
[2017-05-14 10:32] LABS: APPEARANCE,URINE SLIGHTLY-CLOUDY; BILIRUBIN,URINE NEGATIVE (NEGATIVE); GLUCOSE, URINE NEGATIVE (NEGATIVE); KETONES,URINE NEGATIVE (NEGATIVE); LEUKOCYTE ESTERASE,URINE NEGATIVE (NEGATIVE); NITRITE,URINE NEGATIVE (NEGATIVE); PROTEIN,URINE 30 mg/dL (NEGATIVE); URINE SPECIFIC GRAVITY 1.023
[2017-05-14] MEDS: PANTOPRAZOLE SODIUM 40 MG VIAL IV SCH (10:41)
[2017-05-14] MEDS: CEFTRIAXONE 1 GM/D5W RTU 1 GM/50 ML RTUPB IV SCH (10:41)
--- NOTE | 2017-05-14 12:51 | PDOC PROGRESS REPORT ---
Subjective Progress Note for:: 05/14/17 Subjective:: Nursing states that pt is doing much better. Pt was sleeping during my encounter. Physical Exam Vital Signs: Temp Pulse Resp BP Pulse Ox 97.0 F 58 L 12 104/70 96 05/14/17 11:58 05/14/17 11:58 05/14/17 11:58 05/14/17 11:58 05/14/17 11:58 Intake & Output 05/13/17 05/14/17 05/15/17 06:59 06:59 06:59 Intake Total 1165 Output Total 200 150 Balance 965 -150 Weight 78.8 kg General appearance: PRESENT: no acute distress, thin, other - sleeping. + temporal wasting. Head exam: PRESENT: atraumatic, normocephalic Eye exam: PRESENT: conjunctiva pink, EOMI. ABSENT: scleral icterus Ear exam: PRESENT: normal external ear exam Mouth exam: PRESENT: moist, tongue midline Neck exam: ABSENT: carotid bruit, JVD, lymphadenopathy, thyromegaly Respiratory exam: PRESENT: clear to auscultation diego. ABSENT: rales, rhonchi, wheezes Cardiovascular exam: PRESENT: bradycardia, irregular rhythm Pulses: PRESENT: normal dorsalis pedis pul GI/Abdominal exam: PRESENT: normal bowel sounds, soft. ABSENT: distended, guarding, mass, organolmegaly, rebound, tenderness Rectal exam: PRESENT: deferred Extremities exam: PRESENT: full ROM. ABSENT: calf tenderness, clubbing, pedal edema Neurological exam: PRESENT: other - sleeping Psychiatric exam: PRESENT: other - sleeping Skin exam: PRESENT: dry, warm Results Laboratory Results: 05/14/17 02:59 05/14/17 02:59 05/13/17 05/13/17 05/13/17 20:05 22:44 22:44 WBC 15.6 H RBC 3.76 L Hgb 11.8 L Hct 36.6 L MCV 97 MCH 31.3 MCHC 32.2 RDW 15.9 H Plt Count 187 Seg Neutrophils % Not Reportable Lymphocytes % Not Reportable Monocytes % Not Reportable Eosinophils % Not Reportable Basophils % Not Reportable Absolute Neutrophils Not Reportable Absolute Lymphocytes Not Reportable Absolute Monocytes Not Reportable Absolute Eosinophils Not Reportable Absolute Basophils Not Reportable Sodium 136.2 L Potassium 5.9 H Chloride 103 Carbon Dioxide 18 L Anion Gap 15 BUN 38 H Creatinine 1.53 H Est GFR ( Amer) 53 L Est GFR (Non-Af Amer) 44 L Glucose 141 H Lactic Acid 4.4 H Calcium 8.3 L Magnesium Total Bilirubin AST ALT Alkaline Phosphatase Total Protein Albumin TSH Free T4 Urine Color Urine Appearance Urine pH Ur Specific [place] Urine Protein Urine Glucose (UA) Urine Ketones Urine Blood Urine Nitrite Ur Leukocyte Esterase Urine WBC (Auto) Urine RBC (Auto) 05/13/17 05/14/17 05/14/17 22:44 02:01 02:59 WBC 14.4 H RBC 3.35 L Hgb 10.2 L Hct 32.6 L MCV 97 MCH 30.6 MCHC 31.5 L RDW 15.8 H Plt Count 177 Seg Neutrophils % Not Reportable Lymphocytes % Not Reportable Monocytes % Not Reportable Eosinophils % Not Reportable Basophils % Not Reportable Absolute Neutrophils Not Reportable Absolute Lymphocytes Not Reportable Absolute Monocytes Not Reportable Absolute Eosinophils Not Reportable Absolute Basophils Not Reportable Sodium Cancelled Potassium Cancelled Chloride Cancelled Carbon Dioxide Cancelled Anion Gap Cancelled BUN Cancelled Creatinine Cancelled Est GFR ( Amer) Cancelled Est GFR (Non-Af Amer) Cancelled Glucose Cancelled Lactic Acid 5.4 H Calcium Cancelled Magnesium Total Bilirubin AST ALT Alkaline Phosphatase Total Protein Albumin TSH Free T4 Urine Color Urine Appearance Urine pH Ur Specific [place] Urine Protein Urine Glucose (UA) Urine Ketones Urine Blood Urine Nitrite Ur Leukocyte Esterase Urine WBC (Auto) Urine RBC (Auto) 05/14/17 05/14/17 05/14/17 02:59 02:59 10:05 WBC RBC Hgb Hct MCV MCH MCHC RDW Plt Count Seg Neutrophils % Lymphocytes % Monocytes % Eosinophils % Basophils % Absolute Neutrophils Absolute Lymphocytes Absolute Monocytes Absolute Eosinophils Absolute Basophils Sodium 138.7 Potassium 5.1 H Chloride 109 H Carbon Dioxide 17 L Anion Gap 13 BUN 40 H Creatinine 1.68 H Est GFR ( Amer) 48 L Est GFR (Non-Af Amer) 39 L Glucose 149 H Lactic Acid Calcium 7.9 L Magnesium 2.0 Total Bilirubin 1.9 H AST 3070 H ALT 985 H Alkaline Phosphatase 136 H Total Protein 5.0 L Albumin 2.6 L TSH 3.67 Free T4 1.39 Urine Color DARK YELLOW Urine Appearance SLIGHTLY-CLOUDY Urine pH 5.0 Ur Specific [place] 1.023 Urine Protein 30 H Urine Glucose (UA) NEGATIVE Urine Ketones NEGATIVE Urine Blood NEGATIVE Urine Nitrite NEGATIVE Ur Leukocyte Esterase NEGATIVE Urine WBC (Auto) 0 Urine RBC (Auto) 0 05/13/17 05/14/17 20:05 00:38 Troponin I 2.620 3.930 Impressions: Chest X-Ray 05/13/17 15:36 IMPRESSION: Mild to moderate interstitial change predominantly involving the lung bases and has developed since the older chest x-rays. Differential includes interstitial edema or possibly developing chronic pulmonary interstitial disease such as pulmonary fibrosis. Assessment & Plan - Diagnosis (1) Atrial fibrillation with RVR Is this a current diagnosis for this admission?: Yes Plan: Pt was given amiodarone which helped with rate control. Pt continued Heparin drip. (2) Acute kidney injury superimposed on chronic kidney disease Is this a current diagnosis for this admission?: Yes Plan: Will continue to monitor. Expect renal function to improve with heart rate being better controlled. (3) Non-sustained ventricular tachycardia Is this a current diagnosis for this admission?: Yes Plan: Pt was given amiodarone. (4) Non-ST elevation (NSTEMI) myocardial infarction Is this a current diagnosis for this admission?: Yes Plan: Cardiology following pt. 2 D echo pending. (5) Protein-calorie malnutrition, moderate Is this a current diagnosis for this admission?: Yes Plan: Will place pt on Ensure and regular diet (6) Lactic acid acidosis Is this a current diagnosis for this admission?: Yes Plan: Most likely Secondary to Poor Cardiac Perfusion: Will monitor. (7) Hyperkalemia Is this a current diagnosis for this admission?: Yes Plan: Improved with kayexalate. (8) Elevated brain natriuretic peptide (BNP) level Is this a current diagnosis for this admission?: Yes Plan: Patient appears to be euvolemic at this time however will monitor closely. (9) Elevated LFTs Is this a current diagnosis for this admission?: Yes Plan: Secondary to hepatic congestion: We will continue to follow LFTs feel that this will improve once patient's heart rate is under better control (10) Dementia Qualifiers: Dementia type: unspecified type Is this a current diagnosis for this admission?: Yes Plan: Family has requested that patient be DNR. Family has only agreed to medication treatment. Will consult Pallative care. (11) Metabolic acidosis Is this a current diagnosis for this admission?: Yes Plan: Secondary to Poor Cardiac Perfusion and Acute Renal Injury in setting CKD Stage 3: Will continue to monitor. (12) Pneumonia Qualifiers: Pneumonia type: due to unspecified organism Laterality: unspecified laterality Lung location: unspecified part of lung Qualified Code(s): J18.9 - Pneumonia, unspecified organism Is this a current diagnosis for this admission?: Yes Plan: Patient's chest x-ray demonstrates findings is consistent with pulmonary fibrosis. If patient does have infiltrate most likely secondary to fluid due to patient's rapid heart rate. In the meantime we will empirically treat with antibiotics. Will repeat CXR today. (13) DVT prophylaxis Is this a current diagnosis for this admission?: Yes Plan: Heparin - Time Time Spent with patient: 25-34 minutes
--- NOTE | 2017-05-14 14:14 | RADIOLOGY REPORT (SQ) ---
EXAM DESCRIPTION: CHEST SINGLE VIEW COMPLETED DATE/TIME: 05/14/2017 1:56 pm REASON FOR STUDY: Concern for Pneumonia COMPARISON: 05/13/2017 EXAM PARAMETERS: NUMBER OF VIEWS: One view. TECHNIQUE: Single frontal radiographic view of the chest acquired. RADIATION DOSE: NA LIMITATIONS: None. FINDINGS: LUNGS AND PLEURA: Chronic interstitial changes are present. There is increased opacity in the left base. There appear to be small pleural effusions. MEDIASTINUM AND HILAR STRUCTURES: No masses. Contour normal. HEART AND VASCULAR STRUCTURES: Heart size is borderline. Pulmonary vascular congestion is present. No edema is seen BONES: No acute findings. HARDWARE: None in the chest. OTHER: No other significant finding. IMPRESSION: 1. Chronic lung changes. A left lower lobe pneumonia cannot be excluded. 2. Borderline cardiomegaly with pulmonary vascular congestion. 3. Small pleural effusions. TECHNICAL DOCUMENTATION: JOB ID: [id number]
[2017-05-14] MEDS ORDERED: ALBUTEROL SULFATE 0.083% NEB 2.5 MG/3 ML AMPUL NEB PRN (14:51)
[2017-05-14] MEDS: MEMANTINE HCL 10 MG TABLET PO SCH (17:37)
[2017-05-14] MEDS: HEPARIN SODIUM,PORCINE/D5W 25,000 UNIT/250 ML RTUINJ IV PRN (18:03)
[2017-05-14] MEDS ORDERED: AMIODARONE HCL INJ 150 MG/3 ML VIAL IV ONE (18:50)
[2017-05-14] MEDS ORDERED: SIMVASTATIN 10 MG TABLET PO SCH (22:00)
--- NOTE | 2017-05-14 22:54 | Palliative Consultation Report ---
Consultation From:: LOW JONES Consult Reason: Palliaitve Care Consult - HPI HPI: Palliative care visit with patient and his at 12:45- 1:20 PM 05/14/17 Appreciate palliative care consult with this 81 year old gentleman who has been admitted with Non Stemi TN, Atrial Fib with RVR, Runs of V Tach, CAD, COPD, Dementia , etc. Ale Weston was sleeping peacefully through most of my visit. His tells me he has had dementia was still active. On 05/11, he had been out on golf [place] in golf cart, happy, no complaints, eating well, etc. However, on 05/12 he was very weak, did not want to eat, then started complaining of chest pain and shoulder pain. He was too weak to get into the car so she called 911 to bring him to ER. He is now being treated with amiodarone IV for arrhythmias. He is not complaining of chest pain or shortnes of breath, but he remains very weak and tired. his is planning to take him home after discahrge, but wants him to stay until he can be stronger and feeling better. She said he said he doesnt want to have to live on pils and be dependent on others. However, I did tell her that he very likely will have to take amiodarone or other medication after discharge. His dementia may be worse after this hospitalization. Mrs. Weston has already asked the doctors to make patient a DNR because she knows he would not want to live on medicaitons and certainly not on machines. I assured her that this order was written. Laura denies pain and dyspnea, states he has not complained of any discomfort today. She is glad he is resting and she is planning to go home and sleep tonight since she has been staying at the hospital around the clock. Onset: Just prior to arrival Onset/Duration: Sudden Quality of Pain: No pain Past Medical History(Consults) - General Information Source: Relative, [facility] Records Home Medications: Albuterol Sulfate [Albuterol Sulfate 2.5mg/3 mL] 2.5 mg NEB Q6HP PRN 05/13/17 Albuterol Sulfate [Albuterol Sulfate 2.5mg/3 mL] 2.5 ml NEB QAM 05/13/17 Albuterol Sulfate [Proair HFA Inhalation Aerosol 8.5 gm MDI] 2 puff IH Q6 Amlodipine Besylate [Norvasc 5 mg Tablet] 5 mg PO DAILY 05/13/17 Aspirin [Ecotrin 81 mg EC Tablet] 81 mg PO DAILY 05/13/17 Cyanocobalamin (Vitamin B-12) [Vitamin B-12 Inj 1000 Mcg/1 ml Vial] 1,000 mcg IM [id number] 05/13/17 Donepezil HCl [Aricept 5 mg Tablet] 5 mg PO DAILY 05/13/17 Fluoxetine HCl [Prozac 20 mg Capsule] 20 mg PO DAILY 05/13/17 Memantine HCl [Namenda 10 mg Tablet] 10 mg PO BID 05/13/17 Omeprazole 20 mg PO DAILY 05/13/17 Prednisone [Deltasone 5 mg Tablet] 5 mg PO DAILY 05/13/17 Pregabalin [Lyrica] 225 mg PO QHS 05/13/17 Simvastatin [Zocor 10 mg Tablet] 10 mg PO QHS 05/13/17 Tramadol HCl [Ultram 50 mg Tablet] 50 mg PO Q8HP PRN 05/13/17 Trazodone HCl [Desyrel 50 mg Tablet] 50 mg PO QHS 05/13/17 Umeclidinium Brm/Vilanterol Tr [Anoro Ellipta 62.5-25 Mcg INH] 1 puff IH DAILY 05/13/17 Allergies/Adverse Reactions: warfarin [Warfarin] Allergy (Severe, Verified 03/18/17 11:20) too high pt levels - Social History Lives with: Family, Spouse/Significant other Family History: Reviewed & Not Pertinent Parental Family History Reviewed: No Children Family History Reviewed: No Sibling(s) Family History Reviewed.: No Smoking Status: Unknown if Ever Smoked Last Time Smoked: 20 yrs ago Frequency of Alcohol Use: None Hx Recreational Drug Use: No Drugs: None Hx Prescription Drug Abuse: No - Past Medical History Cardiac Medical History: Reports: Hx Atrial Fibrillation, Hx Coronary Artery Disease - ist degree ht block, arrhythmia, Hx Hypercholesterolemia, Hx Hypertension Pulmonary Medical History: Reports: Hx COPD EENT Medical History: Reports: None Neurological History Note: Dementia Endocrine Medical History: Reports: Hx Diabetes Mellitus Type 2 Renal/ Medical History: Denies: Hx Peritoneal Dialysis Malignancy Medical History: Reports None GI Medical History: Reports: Hx Ulcer Musculoskeltal Medical History: Reports Hx Arthritis - gout Psychiatric Medical History: Reports: Hx Dementia Hematology: Reports: Anemia - Surgical History Past Surgical History: Reports: Hx Orthopedic Surgery - right knee, neck fusion. Denies: Hx Pacemaker Review of systems ROS unobtainable: due to mental statu - very sleepy, dementia Ojective:Exam Vital Signs: Temp Pulse Resp BP Pulse Ox 97.3 F 67 14 124/72 97 05/14/17 18:12 05/14/17 18:07 05/14/17 18:12 05/14/17 18:12 05/14/17 18:12 Intake & Output 05/13/17 05/14/17 05/15/17 06:59 06:59 06:59 Intake Total 1165 212 Output Total 200 385 Balance 965 -173 Weight 78.8 kg - General General Appearance: Sleeping/easily aroused - HEENT Head: Normocephalic Eyes: Normal Pupils: PERRLA Nasal: Normal Mucous membrane: Moist - Respiratory Respiratory Status: No respiratory distress - O2 per N/C saturations 95%, respirations unlabored, no cough, no use of accesory muscles Breath sounds: Clear - Cardiovascular Rhythm: Regular Pulses: Normal: Radial - Abdominal Inspection: Normal Distension: No distension - Extremities Upper extremity: Normal inspection - Neurological Cognition: Other - sleepy Speech: Normal Cranial nerves: Normal - Psychological Associated symptoms: Flat affect - drowsy Objective-Diagnostic Laboratory: 05/14/17 02:59 05/14/17 02:59 05/13/17 05/13/17 05/13/17 22:44 22:44 22:44 WBC 15.6 H RBC 3.76 L Hgb 11.8 L Hct 36.6 L MCV 97 MCH 31.3 MCHC 32.2 RDW 15.9 H Plt Count 187 Seg Neutrophils % Not Reportable Lymphocytes % Not Reportable Monocytes % Not Reportable Eosinophils % Not Reportable Basophils % Not Reportable Absolute Neutrophils Not Reportable Absolute Lymphocytes Not Reportable Absolute Monocytes Not Reportable Absolute Eosinophils Not Reportable Absolute Basophils Not Reportable Sodium 136.2 L Potassium 5.9 H Chloride 103 Carbon Dioxide 18 L Anion Gap 15 BUN 38 H Creatinine 1.53 H Est GFR ( Amer) 53 L Est GFR (Non-Af Amer) 44 L Glucose 141 H Lactic Acid 5.4 H Calcium 8.3 L Magnesium Total Bilirubin AST ALT Alkaline Phosphatase Total Protein Albumin TSH Free T4 Urine Color Urine Appearance Urine pH Ur Specific [place] Urine Protein Urine Glucose (UA) Urine Ketones Urine Blood Urine Nitrite Ur Leukocyte Esterase Urine WBC (Auto) Urine RBC (Auto) 05/14/17 05/14/17 05/14/17 02:01 02:59 02:59 WBC 14.4 H RBC 3.35 L Hgb 10.2 L Hct 32.6 L MCV 97 MCH 30.6 MCHC 31.5 L RDW 15.8 H Plt Count 177 Seg Neutrophils % Not Reportable Lymphocytes % Not Reportable Monocytes % Not Reportable Eosinophils % Not Reportable Basophils % Not Reportable Absolute Neutrophils Not Reportable Absolute Lymphocytes Not Reportable Absolute Monocytes Not Reportable Absolute Eosinophils Not Reportable Absolute Basophils Not Reportable Sodium Cancelled 138.7 Potassium Cancelled 5.1 H Chloride Cancelled 109 H Carbon Dioxide Cancelled 17 L Anion Gap Cancelled 13 BUN Cancelled 40 H Creatinine Cancelled 1.68 H Est GFR ( Amer) Cancelled 48 L Est GFR (Non-Af Amer) Cancelled 39 L Glucose Cancelled 149 H Lactic Acid Calcium Cancelled 7.9 L Magnesium 2.0 Total Bilirubin 1.9 H AST 3070 H ALT 985 H Alkaline Phosphatase 136 H Total Protein 5.0 L Albumin 2.6 L TSH Free T4 Urine Color Urine Appearance Urine pH Ur Specific [place] Urine Protein Urine Glucose (UA) Urine Ketones Urine Blood Urine Nitrite Ur Leukocyte Esterase Urine WBC (Auto) Urine RBC (Auto) 05/14/17 05/14/17 02:59 10:05 WBC RBC Hgb Hct MCV MCH MCHC RDW Plt Count Seg Neutrophils % Lymphocytes % Monocytes % Eosinophils % Basophils % Absolute Neutrophils Absolute Lymphocytes Absolute Monocytes Absolute Eosinophils Absolute Basophils Sodium Potassium Chloride Carbon Dioxide Anion Gap BUN Creatinine Est GFR ( Amer) Est GFR (Non-Af Amer) Glucose Lactic Acid Calcium Magnesium Total Bilirubin AST ALT Alkaline Phosphatase Total Protein Albumin TSH 3.67 Free T4 1.39 Urine Color DARK YELLOW Urine Appearance SLIGHTLY-CLOUDY Urine pH 5.0 Ur Specific [place] 1.023 Urine Protein 30 H Urine Glucose (UA) NEGATIVE Urine Ketones NEGATIVE Urine Blood NEGATIVE Urine Nitrite NEGATIVE Ur Leukocyte Esterase NEGATIVE Urine WBC (Auto) 0 Urine RBC (Auto) 0 05/13/17 05/14/17 20:05 00:38 Troponin I 2.620 3.930 Plan and Recommendation Plan and Recommendation: does not want any heroic measures taken and feels patient would not want to be on machines or have complicated medications every day. She is agreeable to DNR and wants patient to be comfortable. She understands that he may change rapidly with his multiple comorbid conditions. She does not feel he is having any pain or discomfort at present. Discusssed plans for post hospitalization. She wants patient to be able to return home at baseline from before this episode. We discussed that he most likely will be on anti-arythmic dugs and may be more confused at times given this episode and hospitalization. SHe understands that he may be weaker and not able to do everything he could do last week. ENcouraged to get some rest while she can as he will need her to be able to hlep him after discharge. WIll follow next week, I gave my cell phone number in case she has concerns later. Thank you for allowing me to participate in care of blake pérez. - Time Spent with Patient Time spent with patient: 15 to 30 Minutes Time: 20 min with pt/. 20 min chart review and consultation.
--- NOTE | 2017-05-15 08:00 | EKG REPORT ---
SEVERITY:- ABNORMAL ECG - ATRIAL FIBRILLATION MULTIFORM VENTRICULAR PREMATURE COMPLEXES RIGHT BUNDLE BRANCH BLOCK PROBABLE INFERIOR INFARCT, OLD : Confirmed by: Frantz Rainey MD 15-May-2017 07:59:23
[2017-05-15] MEDS ORDERED: PREDNISONE 5 MG TABLET PO SCH (10:00)
[2017-05-15] MEDS ORDERED: FLUOXETINE HCL 20 MG CAPSULE PO SCH (10:00)
[2017-05-15] MEDS ORDERED: (PENDING PHARMACY ID) (Umeclidinium Brm/Vilanterol Tr [Anoro Ellipta 62.5-25 Mcg Inh] 1 PU IH SCH (10:00)
[2017-05-15] MEDS ORDERED: DONEPEZIL HCL 5 MG TABLET PO SCH (10:00)
[2017-05-15] MEDS ORDERED: TRAMADOL HCL 50 MG TABLET PO PRN (10:34)
[2017-05-15] MEDS: CEFTRIAXONE 1 GM/D5W RTU 1 GM/50 ML RTUPB IV SCH (11:13)
[2017-05-15] MEDS: MEMANTINE HCL 10 MG TABLET PO SCH (11:31)
[2017-05-15] MEDS ORDERED: PREGABALIN 75 MG CAPSULE PO ONE (12:00)
--- NOTE | 2017-05-15 13:08 | PDOC PROGRESS REPORT ---
Subjective Progress Note for:: 05/14/17 Subjective:: Patient was seen at around 6 PM last although he was also seen in the morning. Recurrent vtach. Patient remains critically ill and was seen multiple times. Patient was noted to be bradycardic last night and therefore amiodarone drip was subsequently stopped. This afternoon, and later on in the evening patient was noted to have multiple runs of ventricular tachycardia some sustained and nonsustained. Orders were given for IV amiodarone bolus and drip at lower dose to be started. Physical Exam Vital Signs: Temp Pulse Resp BP Pulse Ox 97.3 F 67 14 124/72 97 05/14/17 18:12 05/14/17 18:07 05/14/17 18:12 05/14/17 18:12 05/14/17 18:12 Intake & Output 05/13/17 05/14/17 05/15/17 06:59 06:59 06:59 Intake Total 1165 212 Output Total 200 385 Balance 965 -173 Weight 78.8 kg Exam: GENERAL: well-nourished and in no acute distress. Patient is alert. Patient does respond to questions and seems appropriate answers. However has been noted to be intermittently confused. HEAD: Atraumatic, normocephalic. EYES: Pupils equal round and reactive to light, extraocular movements intact, sclera anicteric, conjunctiva are normal. ENT: TMs normal, nares patent, oropharynx clear without exudates. Moist mucous membranes. No oral ulcerations or bleeding gums noted NECK: supple without lymphadenopathy or JVD. Trachea is central. No cervical or axillary lymphadenopathy noted. Carotids are 2+ LUNGS: Breath sounds bibasilar fine crackles at bases. No significant dullness noted. CHEST: Palpation of chest wall shows no significant chest wall tenderness. HEART: [employer], No PSH, 2/6 K[place] aortic area, 1/6 [place] systolic murmur mitral area, rubs or gallops. ABDOMEN: Soft, no significant tenderness appreciated, normoactive bowel sounds. No guarding, no rebound. No rigidity noted . No masses appreciated. EXTREMITIES: Pedal pulses are 1-2+, no calf tenderness noted, Trace + pedal edema noted. No clubbing or cyanosis. NEUROLOGICAL: Patient is alert generalized weakness noted but patient able to move all 4 extremities on command. No facial asymmetry noted. PSYCH: Patient mood seems normal. Judgment not checked because of history of dementia. SKIN: No significant ecchymosis, erythematous rash noted all over, mild pruritus noted. MUSCULOSKELETAL EXAM: No significant joint swelling noted. Skin exam: PRESENT: rash - generalised erythematous rash Results Laboratory Results: 05/14/17 02:59 05/14/17 02:59 05/13/17 05/13/17 05/13/17 22:44 22:44 22:44 WBC 15.6 H RBC 3.76 L Hgb 11.8 L Hct 36.6 L MCV 97 MCH 31.3 MCHC 32.2 RDW 15.9 H Plt Count 187 Seg Neutrophils % Not Reportable Lymphocytes % Not Reportable Monocytes % Not Reportable Eosinophils % Not Reportable Basophils % Not Reportable Absolute Neutrophils Not Reportable Absolute Lymphocytes Not Reportable Absolute Monocytes Not Reportable Absolute Eosinophils Not Reportable Absolute Basophils Not Reportable Sodium 136.2 L Potassium 5.9 H Chloride 103 Carbon Dioxide 18 L Anion Gap 15 BUN 38 H Creatinine 1.53 H Est GFR ( Amer) 53 L Est GFR (Non-Af Amer) 44 L Glucose 141 H Lactic Acid 5.4 H Calcium 8.3 L Magnesium Total Bilirubin AST ALT Alkaline Phosphatase Total Protein Albumin TSH Free T4 Urine Color Urine Appearance Urine pH Ur Specific [place] Urine Protein Urine Glucose (UA) Urine Ketones Urine Blood Urine Nitrite Ur Leukocyte Esterase Urine WBC (Auto) Urine RBC (Auto) 05/14/17 05/14/17 05/14/17 02:01 02:59 02:59 WBC 14.4 H RBC 3.35 L Hgb 10.2 L Hct 32.6 L MCV 97 MCH 30.6 MCHC 31.5 L RDW 15.8 H Plt Count 177 Seg Neutrophils % Not Reportable Lymphocytes % Not Reportable Monocytes % Not Reportable Eosinophils % Not Reportable Basophils % Not Reportable Absolute Neutrophils Not Reportable Absolute Lymphocytes Not Reportable Absolute Monocytes Not Reportable Absolute Eosinophils Not Reportable Absolute Basophils Not Reportable Sodium Cancelled 138.7 Potassium Cancelled 5.1 H Chloride Cancelled 109 H Carbon Dioxide Cancelled 17 L Anion Gap Cancelled 13 BUN Cancelled 40 H Creatinine Cancelled 1.68 H Est GFR ( Amer) Cancelled 48 L Est GFR (Non-Af Amer) Cancelled 39 L Glucose Cancelled 149 H Lactic Acid Calcium Cancelled 7.9 L Magnesium 2.0 Total Bilirubin 1.9 H AST 3070 H ALT 985 H Alkaline Phosphatase 136 H Total Protein 5.0 L Albumin 2.6 L TSH Free T4 Urine Color Urine Appearance Urine pH Ur Specific [place] Urine Protein Urine Glucose (UA) Urine Ketones Urine Blood Urine Nitrite Ur Leukocyte Esterase Urine WBC (Auto) Urine RBC (Auto) 05/14/17 05/14/17 02:59 10:05 WBC RBC Hgb Hct MCV MCH MCHC RDW Plt Count Seg Neutrophils % Lymphocytes % Monocytes % Eosinophils % Basophils % Absolute Neutrophils Absolute Lymphocytes Absolute Monocytes Absolute Eosinophils Absolute Basophils Sodium Potassium Chloride Carbon Dioxide Anion Gap BUN Creatinine Est GFR ( Amer) Est GFR (Non-Af Amer) Glucose Lactic Acid Calcium Magnesium Total Bilirubin AST ALT Alkaline Phosphatase Total Protein Albumin TSH 3.67 Free T4 1.39 Urine Color DARK YELLOW Urine Appearance SLIGHTLY-CLOUDY Urine pH 5.0 Ur Specific [place] 1.023 Urine Protein 30 H Urine Glucose (UA) NEGATIVE Urine Ketones NEGATIVE Urine Blood NEGATIVE Urine Nitrite NEGATIVE Ur Leukocyte Esterase NEGATIVE Urine WBC (Auto) 0 Urine RBC (Auto) 0 05/13/17 05/14/17 20:05 00:38 Troponin I 2.620 3.930 Impressions: Chest X-Ray 05/14/17 00:00 IMPRESSION: 1. Chronic lung changes. A left lower lobe pneumonia cannot be excluded. 2. Borderline cardiomegaly with pulmonary vascular congestion. 3. Small pleural effusions. Assessment & Plan - Diagnosis (1) Ventricular tachycardia Is this a current diagnosis for this admission?: Yes (2) Non-ST elevation (NSTEMI) myocardial infarction Is this a current diagnosis for this admission?: Yes (3) Atrial fibrillation Qualifiers: Atrial fibrillation type: unspecified Qualified Code(s): I48.91 - Unspecified atrial fibrillation Is this a current diagnosis for this admission?: Yes (4) Acute kidney injury superimposed on chronic kidney disease Is this a current diagnosis for this admission?: Yes (5) Congestive heart failure Qualifiers: Congestive heart failure type: unspecified congestive heart failure type Congestive heart failure chronicity: acute on chronic Qualified Code(s): I50.9 - Heart failure, unspecified Is this a current diagnosis for this admission?: Yes - Notes Notes: Ventricular tachycardia: Patient noted to have mostly nonsustained runs and few runs lasting more than 15 seconds. Patient started back on amiodarone bolus and drip protocol. Atrial fibrillation: Patient noted to have intermittently increased heart rate and also at times slow heart rate. Continue amiodarone drip and esmolol drip for heart rate control. Would not be a good candidate for chronic anticoagulation. Pneumonia: Continue antibiotic therapy. Acute on chronic kidney disease: Continue to monitor renal functions. Avoid contrast agent if possible. Non-ST segment elevation myocardial infarction: Patient has significantly elevated troponin I. Continue with current supportive care. Patient not having any active anginal symptoms but ventricular tachycardia could be ischemia related. Will consider adding Ranexa to the regimen. Overall prognosis is guarded. A 2D echo shows significantly depressed LVEF with wall motion abnormalities indicative of prior myocardial infarctions. Do not feel patient will be a candidate for ischemia evaluation. - Time Time with patient: Greater than 35 minutes - CODE STATUS : was discussed, patient remains DO NOT RESUSCITATE. Surrogate decision-maker unchanged. Multiple medical problems were addressed. More than 50% of the time spent coordinating care, discussing management plans with involved caregivers. Management plans discussed with involved personnels. Medical decision making was of moderate to high complexity, patient's has multiple comorbidities. Medications reviewed and adjusted accordingly: Yes
--- NOTE | 2017-05-15 13:10 | PDOC PROGRESS REPORT ---
Subjective Progress Note for:: 05/15/17 Subjective:: Patient has been made comfort care overnight. Now looks comfortable and more calm. at bedside. Questions answered. Patient to be discharged home with hospice. Physical Exam Vital Signs: Temp Pulse Resp BP Pulse Ox 97.3 F 67 14 124/72 97 05/14/17 18:12 05/14/17 18:07 05/14/17 18:12 05/14/17 18:12 05/14/17 18:12 Intake & Output 05/14/17 05/15/17 05/16/17 06:59 06:59 06:59 Intake Total 1165 212 Output Total 200 385 Balance 965 -173 Weight 78.8 kg Exam: Patient looks more comfortable. Exam is otherwise unchanged. Results Laboratory Results: 05/14/17 02:59 05/14/17 02:59 05/13/17 05/14/17 20:05 00:38 Troponin I 2.620 3.930 Impressions: Chest X-Ray 05/14/17 00:00 IMPRESSION: 1. Chronic lung changes. A left lower lobe pneumonia cannot be excluded. 2. Borderline cardiomegaly with pulmonary vascular congestion. 3. Small pleural effusions. Assessment & Plan - Diagnosis (1) Ventricular tachycardia Is this a current diagnosis for this admission?: Yes (2) Non-ST elevation (NSTEMI) myocardial infarction Is this a current diagnosis for this admission?: Yes (3) Atrial fibrillation Qualifiers: Atrial fibrillation type: unspecified Qualified Code(s): I48.91 - Unspecified atrial fibrillation Is this a current diagnosis for this admission?: Yes (4) Acute kidney injury superimposed on chronic kidney disease Is this a current diagnosis for this admission?: Yes (5) Congestive heart failure Qualifiers: Congestive heart failure type: unspecified congestive heart failure type Congestive heart failure chronicity: acute on chronic Qualified Code(s): I50.9 - Heart failure, unspecified Is this a current diagnosis for this admission?: Yes - Notes Notes: Patient now comfort care. All active treatment has been discontinued. Will sign off. Please reconsult if needed. - Time Time with patient: Less than 15 minutes - Patient currently comfort care. Will sign off.
--- NOTE | 2017-05-15 13:37 | PDOC DISCHARGE SUMMARY ---
General - Admit/Disc Date/PCP Admission Date/Primary Care Provider: 05/13/17 18:07 Discharge Date: 05/15/17 - Discharge Diagnosis (1) Atrial fibrillation with RVR Is this a current diagnosis for this admission?: Yes Summary: Patient was placed on amiodarone and heart rate was under control however patient heart rate then went back to A. fib with RVR and V. tach. Patient's decided to make patient comfort care and home with hospice. (2) Acute kidney injury superimposed on chronic kidney disease Is this a current diagnosis for this admission?: Yes Summary: has decided to make patient hospice (3) Non-sustained ventricular tachycardia Is this a current diagnosis for this admission?: Yes Summary: She was placed on amiodarone which helped control heart rate however patient did not redeveloped ventricular tachycardia. Patient's stated that she only wants him kept comfortable and make patient hospice. (4) Non-ST elevation (NSTEMI) myocardial infarction Is this a current diagnosis for this admission?: Yes Summary: Supportive care. Patient made hospice (5) Protein-calorie malnutrition, moderate Is this a current diagnosis for this admission?: Yes Summary: Encourage supplemental drinks (6) Lactic acid acidosis Is this a current diagnosis for this admission?: Yes Summary: Secondary to poor perfusion. (7) Hyperkalemia Is this a current diagnosis for this admission?: Yes Summary: Resolved (8) Elevated brain natriuretic peptide (BNP) level Is this a current diagnosis for this admission?: Yes Summary: Secondary to V. tach. (9) Elevated LFTs Is this a current diagnosis for this admission?: Yes Summary: Secondary to hepatic congestion due to V. tach and atrial fibrillation with RVR. (10) Dementia Is this a current diagnosis for this admission?: Yes Summary: Supportive care (11) Metabolic acidosis Is this a current diagnosis for this admission?: Yes Summary: Supportive care. (12) Pneumonia Is this a current diagnosis for this admission?: Yes Summary: Most likely secondary to pulmonary edema. Patient made hospice comfort care - Additional Information Resuscitation Status: Do Not Resuscitate Discharge Diet: Regular Home Medications: RX: Albuterol Sulfate [Albuterol Sulfate 2.5mg/3 mL] 2.5 mg NEB Q6HP PRN RX: Albuterol Sulfate [Albuterol Sulfate 2.5mg/3 mL] 2.5 ml NEB QAM 05/13/17 RX: Albuterol Sulfate [Proair HFA Inhalation Aerosol 8.5 gm MDI] 2 puff IH Q6 RX: Amlodipine Besylate [Norvasc 5 mg Tablet] 5 mg PO DAILY 05/13/17 RX: Aspirin [Ecotrin 81 mg EC Tablet] 81 mg PO DAILY 05/13/17 RX: Cyanocobalamin (Vitamin B-12) [Vitamin B-12 Inj 1000 Mcg/1 ml Vial] 1,000 mcg IM [id number] 05/13/17 RX: Donepezil HCl [Aricept 5 mg Tablet] 5 mg PO DAILY 05/13/17 RX: Fluoxetine HCl [Prozac 20 mg Capsule] 20 mg PO DAILY 05/13/17 RX: Memantine HCl [Namenda 10 mg Tablet] 10 mg PO BID 05/13/17 RX: Omeprazole 20 mg PO DAILY 05/13/17 RX: Prednisone [Deltasone 5 mg Tablet] 5 mg PO DAILY 05/13/17 RX: Pregabalin [Lyrica] 225 mg PO QHS 05/13/17 RX: Simvastatin [Zocor 10 mg Tablet] 10 mg PO QHS 05/13/17 RX: Tramadol HCl [Ultram 50 mg Tablet] 50 mg PO Q8HP PRN 05/13/17 RX: Trazodone HCl [Desyrel 50 mg Tablet] 50 mg PO QHS 05/13/17 RX: Umeclidinium Brm/Vilanterol Tr [Anoro Ellipta 62.5-25 Mcg INH] 1 puff IH DAILY 05/13/17 History of Present Illness History of Present Illness: HOLLI JUNIOR is a 81 year old male presents to hospital due to weakness and not eating much. Great Granddaughter states that pt is has been tired for several day. Pt's was not present and patient is a poor historian. Great Granddaughter states that pt has dementia and mental illness. Pt admits to coughing and shortness of breath. ER states that patient's states that she wants him kept comfortable and to give only medications. ER states that reported that she does not want patient having surgery or procedures. He also states that does not want patient intubated. Spoke with patient's great granddaughter who states that her grandmother wants him comfortable and that he is DNR/DNI with no procedures. Hospital Course Hospital Course: Patient was admitted to the ICU where he was placed on amiodarone drip patient' s heart rate was under good control however blood pressure dropped. Therefore amiodarone was discontinued. Patient remained under rate control until later on during the day when patient went back into V. tach and A. fib with RVR. decided to make patient hospice with comfort care measures. Patient was initially treated for presumed pneumonia however feel that patient does not have pneumonia but most likely has fluid collection secondary to A. fib with RVR V. tach. Physical Exam Vital Signs: Temp Pulse Resp BP Pulse Ox 97.3 F 67 14 124/72 97 05/14/17 18:12 05/14/17 18:07 05/14/17 18:12 05/14/17 18:12 05/14/17 18:12 Intake & Output 05/14/17 05/15/17 05/16/17 06:59 06:59 06:59 Intake Total 1165 212 200 Output Total 200 385 400 Balance 965 -173 -200 Weight 78.8 kg General appearance: PRESENT: no acute distress, well-developed, well-nourished Head exam: PRESENT: atraumatic, normocephalic Eye exam: PRESENT: conjunctiva pink, EOMI Ear exam: PRESENT: normal external ear exam Mouth exam: PRESENT: moist, tongue midline Neck exam: ABSENT: carotid bruit, JVD, lymphadenopathy, thyromegaly Respiratory exam: PRESENT: clear to auscultation [place]. ABSENT: rales, rhonchi, wheezes Cardiovascular exam: PRESENT: irregular rhythm, tachycardia Pulses: PRESENT: normal dorsalis pedis pul Vascular exam: PRESENT: normal capillary refill GI/Abdominal exam: PRESENT: normal bowel sounds, soft. ABSENT: distended, guarding, mass, organolmegaly, rebound, tenderness Rectal exam: PRESENT: deferred Extremities exam: PRESENT: full ROM. ABSENT: calf tenderness, clubbing, pedal edema Neurological exam: PRESENT: alert, oriented to person Psychiatric exam: PRESENT: appropriate affect, normal mood. ABSENT: homicidal ideation, suicidal ideation Skin exam: PRESENT: dry, intact, warm. ABSENT: cyanosis, rash Results Laboratory Results: 05/14/17 02:59 05/14/17 02:59 05/13/17 05/14/17 20:05 00:38 Troponin I 2.620 3.930 Impressions: Chest X-Ray 05/14/17 00:00 IMPRESSION: 1. Chronic lung changes. A left lower lobe pneumonia cannot be excluded. 2. Borderline cardiomegaly with pulmonary vascular congestion. 3. Small pleural effusions.
[2017-05-15 14:04] VITALS: BP 119/76
[2017-05-15] MEDS ORDERED: MORPHINE SULFATE 10 MG/ML INJ IV ONE (15:00)
[2017-05-15] MEDS ORDERED: (PENDING PHARMACY ID) (Pregabalin [Lyrica] 225 MG) PO SCH (22:00)
[2017-05-15] MEDS ORDERED: PREGABALIN 75 MG CAPSULE PO SCH (22:00)
[2017-05-15] MEDS ORDERED: TRAZODONE HCL 50 MG TABLET PO SCH (22:00)
== END 2017-05-15 15:06 | disposition hospice, home (50) | DRG 281 ==
LOC: ER 15:33 → EH 18:07 → UNDOADMIN 18:18 → ICU 21:34 → 5 05-14 21:17
PROVIDERS: ADMIT Family Medicine; ATTEND Family Medicine
DX: I21.4 Non-ST elevation (NSTEMI) myocardial infarction (principal); N17.9 Acute kidney failure, unspecified; E44.0 Moderate protein-calorie malnutrition; E87.2 Acidosis; J44.0 Chronic obstructive pulmonary disease with (acute) lower respiratory infection; I47.2 Ventricular tachycardia; I48.91 Unspecified atrial fibrillation; Z51.5 Encounter for palliative care; I50.9 Heart failure, unspecified; D64.9 Anemia, unspecified; Z68.33 Body mass index [BMI] 33.0-33.9, adult; I12.9 Hypertensive chronic kidney disease with stage 1 through stage 4 chronic kidney disease, or unspecified chronic kidney disease; E11.22 Type 2 diabetes mellitus with diabetic chronic kidney disease; E87.5 Hyperkalemia; N18.3 Chronic kidney disease, stage 3 (moderate); F03.90 Unspecified dementia, unspecified severity, without behavioral disturbance, psychotic disturbance, mood disturbance, and anxiety; Z66 Do not resuscitate; I25.2 Old myocardial infarction; M10.9 Gout, unspecified; Z87.891 Personal history of nicotine dependence; Z88.8 Allergy status to other drugs, medicaments and biological substances
CPT/HCPCS: 36415; 71010; 80048; 80053; 81001; 82550; 82553; 82803; 82962; 83605; 83690; 83735; 83880; 84439; 84443; 84484; 85025; 85610; 85730; 87040; 87086; 93005; 93010; 93306; 96361; 96365; 96375; 99291; 99292; J0282; J0696; J1160; J1644; J1815; J2270; J3490; J7030; J7060; J7512; S0164